=== PATIENT | male | born 1980 | race Hispanic/Latino ===

== ENCOUNTER 2024-05-03 08:08 | Outpatient (CLI) | payer OTHER | END 2024-05-03 08:09 | disposition home or self-care (01) | LOC: CSHWCC 08:08 | PROVIDERS: ATTEND Nurse Practitioner Family | DX: T81.32XD Disruption of internal operation (surgical) wound, not elsewhere classified, subsequent encounter (principal); S81.801D Unspecified open wound, right lower leg, subsequent encounter; E11.622 Type 2 diabetes mellitus with other skin ulcer; L98.499 Non-pressure chronic ulcer of skin of other sites with unspecified severity; D50.9 Iron deficiency anemia, unspecified | CPT/HCPCS: 11043; 11046; 97606 ==

== ENCOUNTER 2024-05-07 15:12 | Outpatient (CLI) | payer OTHER | END 2024-05-07 15:13 | disposition home or self-care (01) | LOC: CSHWCC 15:12 | PROVIDERS: ATTEND Nurse Practitioner Family | DX: T81.329D Deep disruption or dehiscence of operation wound, unspecified, subsequent encounter (principal); S81.801D Unspecified open wound, right lower leg, subsequent encounter; E11.622 Type 2 diabetes mellitus with other skin ulcer; L98.499 Non-pressure chronic ulcer of skin of other sites with unspecified severity; D50.9 Iron deficiency anemia, unspecified | CPT/HCPCS: 97606 ==

== ENCOUNTER 2024-05-10 15:07 | Outpatient (CLI) | payer OTHER | END 2024-05-10 15:08 | disposition home or self-care (01) | LOC: CSHWCC 15:07 | PROVIDERS: ATTEND Nurse Practitioner Family | DX: T81.329D Deep disruption or dehiscence of operation wound, unspecified, subsequent encounter (principal); S81.801D Unspecified open wound, right lower leg, subsequent encounter; E11.622 Type 2 diabetes mellitus with other skin ulcer; L98.499 Non-pressure chronic ulcer of skin of other sites with unspecified severity; D50.9 Iron deficiency anemia, unspecified | CPT/HCPCS: 11043; 11046; 97606 ==

== ENCOUNTER 2024-05-14 16:02 | Outpatient (CLI) | payer OTHER | END 2024-05-14 16:03 | disposition home or self-care (01) | LOC: CSHWCC 16:02 | PROVIDERS: ATTEND Nurse Practitioner Family | DX: E11.622 Type 2 diabetes mellitus with other skin ulcer (principal); T81.329D Deep disruption or dehiscence of operation wound, unspecified, subsequent encounter; S81.802D Unspecified open wound, left lower leg, subsequent encounter; D50.9 Iron deficiency anemia, unspecified | CPT/HCPCS: 97606 ==

== ENCOUNTER 2024-05-21 15:26 | Outpatient (CLI) | payer OTHER | END 2024-05-21 15:27 | disposition home or self-care (01) | LOC: CSHWCC 15:26 | PROVIDERS: ATTEND Nurse Practitioner Family | DX: S81.801D Unspecified open wound, right lower leg, subsequent encounter (principal); T81.329D Deep disruption or dehiscence of operation wound, unspecified, subsequent encounter; E11.622 Type 2 diabetes mellitus with other skin ulcer; L98.499 Non-pressure chronic ulcer of skin of other sites with unspecified severity; D50.9 Iron deficiency anemia, unspecified | CPT/HCPCS: 11042; 11045 ==

== ENCOUNTER 2024-05-28 13:10 | Outpatient (CLI) | payer OTHER | END 2024-05-28 13:11 | disposition home or self-care (01) | LOC: CSHWCC 13:10 | PROVIDERS: ATTEND Nurse Practitioner Family | DX: S81.801D Unspecified open wound, right lower leg, subsequent encounter (principal); T81.329D Deep disruption or dehiscence of operation wound, unspecified, subsequent encounter; E11.622 Type 2 diabetes mellitus with other skin ulcer; L98.499 Non-pressure chronic ulcer of skin of other sites with unspecified severity; D50.9 Iron deficiency anemia, unspecified | CPT/HCPCS: 11042; 11045 ==

== ENCOUNTER 2024-06-04 14:52 | Outpatient (CLI) | payer OTHER | END 2024-06-04 14:53 | disposition home or self-care (01) | LOC: CSHWCC 14:52 | PROVIDERS: ATTEND Nurse Practitioner Family | DX: S81.801D Unspecified open wound, right lower leg, subsequent encounter (principal); T81.329D Deep disruption or dehiscence of operation wound, unspecified, subsequent encounter; E11.622 Type 2 diabetes mellitus with other skin ulcer; L98.499 Non-pressure chronic ulcer of skin of other sites with unspecified severity; D50.9 Iron deficiency anemia, unspecified | CPT/HCPCS: 11042; 11045 ==

== ENCOUNTER 2024-06-11 15:49 | Outpatient (CLI) | payer OTHER | END 2024-06-11 15:50 | disposition home or self-care (01) | LOC: CSHWCC 15:49 | PROVIDERS: ATTEND Nurse Practitioner Family | DX: T81.329D Deep disruption or dehiscence of operation wound, unspecified, subsequent encounter (principal); S81.801D Unspecified open wound, right lower leg, subsequent encounter; E11.622 Type 2 diabetes mellitus with other skin ulcer; L98.499 Non-pressure chronic ulcer of skin of other sites with unspecified severity; D50.9 Iron deficiency anemia, unspecified | CPT/HCPCS: 11043; 11046; 99212; G0463 ==

== ENCOUNTER 2024-06-19 13:53 | Outpatient (CLI) | payer OTHER | END 2024-06-19 13:54 | disposition home or self-care (01) | LOC: CSHWCC 13:53 | PROVIDERS: ATTEND Nurse Practitioner Family | DX: S81.801D Unspecified open wound, right lower leg, subsequent encounter (principal); T81.329D Deep disruption or dehiscence of operation wound, unspecified, subsequent encounter; E11.622 Type 2 diabetes mellitus with other skin ulcer; L98.499 Non-pressure chronic ulcer of skin of other sites with unspecified severity; D50.9 Iron deficiency anemia, unspecified | CPT/HCPCS: 11042; 11045 ==

== ENCOUNTER 2024-06-26 08:23 | Outpatient (CLI) | payer OTHER | END 2024-06-26 08:24 | disposition home or self-care (01) | LOC: CSHWCC 08:23 | PROVIDERS: ATTEND Nurse Practitioner Family | DX: E11.622 Type 2 diabetes mellitus with other skin ulcer (principal); L97.212 Non-pressure chronic ulcer of right calf with fat layer exposed; L97.312 Non-pressure chronic ulcer of right ankle with fat layer exposed; D50.9 Iron deficiency anemia, unspecified | CPT/HCPCS: 11042; 11045 ==

== ENCOUNTER 2024-07-09 14:19 | Outpatient (CLI) | payer OTHER, SELFPAY | END 2024-07-09 14:20 | disposition home or self-care (01) | LOC: CSHWCC 14:19 | PROVIDERS: ATTEND Nurse Practitioner Family | DX: E11.622 Type 2 diabetes mellitus with other skin ulcer (principal); L97.212 Non-pressure chronic ulcer of right calf with fat layer exposed; L97.312 Non-pressure chronic ulcer of right ankle with fat layer exposed; D50.9 Iron deficiency anemia, unspecified | CPT/HCPCS: 11042; 11045; 99212; G0463 ==

== ENCOUNTER 2024-07-16 16:10 | Outpatient (CLI) | payer OTHER, SELFPAY | END 2024-07-16 16:11 | disposition home or self-care (01) | LOC: CSHWCC 16:10 | PROVIDERS: ATTEND Nurse Practitioner Family | DX: E11.622 Type 2 diabetes mellitus with other skin ulcer (principal); L97.212 Non-pressure chronic ulcer of right calf with fat layer exposed; L97.312 Non-pressure chronic ulcer of right ankle with fat layer exposed; D50.9 Iron deficiency anemia, unspecified | CPT/HCPCS: 11042; 11045 ==

== ENCOUNTER 2024-07-23 14:50 | Outpatient (CLI) | payer SELFPAY | END 2024-07-23 14:51 | disposition home or self-care (01) | LOC: CSHWCC 14:50 | PROVIDERS: ATTEND Nurse Practitioner Family | DX: E11.622 Type 2 diabetes mellitus with other skin ulcer (principal); L97.212 Non-pressure chronic ulcer of right calf with fat layer exposed; L97.312 Non-pressure chronic ulcer of right ankle with fat layer exposed; D50.9 Iron deficiency anemia, unspecified | CPT/HCPCS: 11042; 11045 ==

== ENCOUNTER 2024-08-06 13:16 | Outpatient (CLI) | payer SELFPAY | END 2024-08-06 13:17 | disposition home or self-care (01) | LOC: CSHWCC 13:16 | PROVIDERS: ATTEND Nurse Practitioner Family | DX: E11.622 Type 2 diabetes mellitus with other skin ulcer (principal); L97.212 Non-pressure chronic ulcer of right calf with fat layer exposed; L97.312 Non-pressure chronic ulcer of right ankle with fat layer exposed; D50.9 Iron deficiency anemia, unspecified | CPT/HCPCS: 11042; 11045 ==

== ENCOUNTER 2024-08-13 16:00 | Outpatient (CLI) | payer SELFPAY | END 2024-08-13 16:01 | disposition home or self-care (01) | LOC: CSHWCC 16:00 | PROVIDERS: ATTEND Nurse Practitioner Family | DX: E11.622 Type 2 diabetes mellitus with other skin ulcer (principal); L97.212 Non-pressure chronic ulcer of right calf with fat layer exposed; L97.312 Non-pressure chronic ulcer of right ankle with fat layer exposed; D50.9 Iron deficiency anemia, unspecified | CPT/HCPCS: 11042; 11045 ==

== ENCOUNTER 2024-08-20 13:19 | Outpatient (CLI) | payer OTHER, SELFPAY | END 2024-08-20 13:20 | disposition home or self-care (01) | LOC: CSHWCC 13:19 | PROVIDERS: ATTEND Nurse Practitioner Family | DX: E11.622 Type 2 diabetes mellitus with other skin ulcer (principal); L97.212 Non-pressure chronic ulcer of right calf with fat layer exposed; L97.312 Non-pressure chronic ulcer of right ankle with fat layer exposed; D50.9 Iron deficiency anemia, unspecified | CPT/HCPCS: 11042; 11045 ==

== ENCOUNTER 2024-09-02 13:36 | Outpatient (CLI) | payer OTHER | END 2024-09-02 13:37 | disposition home or self-care (01) | LOC: CSHWCC 13:36 | PROVIDERS: ATTEND Nurse Practitioner Family | DX: E11.622 Type 2 diabetes mellitus with other skin ulcer (principal); L97.212 Non-pressure chronic ulcer of right calf with fat layer exposed; L97.312 Non-pressure chronic ulcer of right ankle with fat layer exposed; D50.9 Iron deficiency anemia, unspecified | CPT/HCPCS: 11042; 11045 ==

== ENCOUNTER 2024-09-10 15:11 | Outpatient (CLI) | payer OTHER | END 2024-09-10 15:12 | disposition home or self-care (01) | LOC: CSHWCC 15:11 | PROVIDERS: ATTEND Nurse Practitioner Family | DX: E11.622 Type 2 diabetes mellitus with other skin ulcer (principal); L97.312 Non-pressure chronic ulcer of right ankle with fat layer exposed; L97.212 Non-pressure chronic ulcer of right calf with fat layer exposed; D50.9 Iron deficiency anemia, unspecified | CPT/HCPCS: 11042; 11045 ==